=== PATIENT | female | born 1935 | race African-American/Black ===

== ENCOUNTER 2019-01-12 20:11 | Inpatient (IN) | payer MEDICARE ==
[~2019-01-12] VITALS: Ht 170.2 cm; Wt 80.7 kg
--- NOTE | 2019-01-12 20:42 | Emergency Room Report ---
History of Present Illness General Chief Complaint: Abdominal Pain Source: Patient Present Illness HPI 83-year-old female history of stage IV liver cancer, presents with 2 days of flank pain, turning jaundiced, no aggravating relieving factors, she has achy pains severity is severe and constant, no fever no chills, she does endorse palpitations, patient normally follows up at [facility], patient presents for evaluation. Allergies: Coded Allergies: SULFAMETHOXAZOLE (Verified Allergy, Unknown, 01/12/19) TRIMETHOPRIM (Verified Allergy, Unknown, 01/12/19) Patient History Past Medical History: see triage record Reviewed Nursing Documentation: PMH: Agreed; PSxH: Agreed Nursing Documentation-PMH Past Medical History: No History, Except For Review of Systems All Other Systems: negative except mentioned in HPI Physical Exam Vital Signs Date Time Temp Pulse Resp B/P (MAP) Pulse Ox O2 Delivery O2 Flow Rate FiO2 01/12/19 20:26 96.4 137 24 106/80 (89) 99 Room Air Sp02 EP Interpretation: reviewed, normal General Appearance: well appearing, no apparent distress, alert Head: normocephalic, atraumatic Eyes: bilateral eye PERRL, bilateral eye EOMI, bilateral eye scleral icterus ENT: uvula midline, moist mucus membranes Neck: supple, thyroid normal, supple/symm/no masses Respiratory: lungs clear, no respiratory distress, no retraction, no accessory muscle use Cardiovascular #1: normal peripheral pulses, no edema, no gallop, no murmur, tachycardia Gastrointestinal: non tender, soft, no guarding, no rebound Musculoskeletal: normal inspection Neurologic: alert, oriented x3 Psychiatric: mood/affect normal Skin: warm/dry, jaundice Medical Decision Making Diagnostic Impression: Primary Impression: Tachycardia Additional Impressions: Sepsis Qualified Codes: A41.9 - Sepsis, unspecified organism Jaundice RICHARD (acute kidney injury) Dehydration ER Course 83-year-old female presents with new onset jaundice, tachycardia, shortness of breath concerning for ACS versus sepsis versus biliary obstruction CT scan shows no acute processes IV antibiotic started, fluid resuscitation, patient will be admitted to stepdown, Reevaluation 11:47 PM, a pulse was filled out, patient is DNR with selective comfort measures, patient will accept a central line and life-saving medication no compressions no intubation Patient will be admitted to Dr. Hendricks Laboratory Tests Test 01/12/19 20:35 01/12/19 23:08 White Blood Count 11.6 K/UL (4.8-10.8) H Red Blood Count 3.41 M/UL (4.20-5.40) L Hemoglobin 11.3 G/DL (12.0-16.0) L Hematocrit 33.9 % (37.0-47.0) L Mean Corpuscular Volume 100 FL (80-99) H Mean Corpuscular Hemoglobin 33.1 PG (27.0-31.0) H Mean Corpuscular Hemoglobin Concent 33.3 G/DL (32.0-36.0) Red Cell Distribution Width 14.8 % (11.6-14.8) Platelet Count 256 K/UL (150-450) Mean Platelet Volume 7.2 FL (6.5-10.1) Neutrophils (%) (Auto) 78.2 % (45.0-75.0) H Lymphocytes (%) (Auto) 9.9 % (20.0-45.0) L Monocytes (%) (Auto) 10.3 % (1.0-10.0) H Eosinophils (%) (Auto) 0.3 % (0.0-3.0) Basophils (%) (Auto) 1.2 % (0.0-2.0) Sodium Level 137 MMOL/L (136-145) Potassium Level 3.9 MMOL/L (3.5-5.1) Chloride Level 98 MMOL/L (98-107) Carbon Dioxide Level 23 MMOL/L (21-32) Anion Gap 16 mmol/L (5-15) H Blood Urea Nitrogen 47 mg/dL (7-18) H Creatinine 2.6 MG/DL (0.55-1.30) H Estimate Glomerular Filtration Rate mL/min (>60) Glucose Level 91 MG/DL (74-106) Lactic Acid Level 3.90 mmol/L (0.4-2.0) H Pending Calcium Level 9.9 MG/DL (8.5-10.1) Total Bilirubin 30.1 MG/DL (0.2-1.0) H Direct Bilirubin 23.7 MG/DL (0.0-0.3) H Aspartate Amino Transferase (AST) 614 U/L (15-37) H Alanine Aminotransferase (ALT) 68 U/L (12-78) Alkaline Phosphatase 470 U/L (46-116) H Total Creatine Kinase 1310 U/L (26-308) H Creatine Kinase MB 1.5 NG/ML (0.0-3.6) Creatine Kinase MB Relative Index 0.1 Troponin I 0.346 ng/mL (0.000-0.056) Pro-B-Type Natriuretic Peptide 33320 pg/mL (0-125) H Total Protein 5.9 G/DL (6.4-8.2) L Albumin 2.4 G/DL (3.4-5.0) L Globulin 3.5 g/dL Albumin/Globulin Ratio 0.7 (1.0-2.7) L Lipase 162 U/L (73-393) EKG Diagnostic Results EKG Time: 20:38 EP Interpretation: A. fib, RVR, rate 139, QTc 478, no acute ST elevations, left axis deviation Rhythm Strip Diag. Results Rhythm Strip Time: 21:12 EP Interpretation: yes Rate: 142 Rhythm: other - Atrial fibrillation Chest X-Ray Diagnostic Results Chest X-Ray Diagnostic Results : Chest X-Ray Ordered: Yes # of Views/Limited/Complete: 1 View Indication: Shortness of Breath EP Interpretation: Yes Interpretation: other - Enlarged heart Impression: Other - Enlarged heart Electronically Signed by: Lucius Santana MD CT/MRI/US Diagnostic Results CT/MRI/US Diagnostic Results : Impression Preliminary Findings Only See Final Report For Complete Findings CT CHEST Without Contrast: Multiple (greater than 10) pulmonary nodules within the lungs largest within the right upper lobe measuring 1.9 cm. No consolidation, interstitial edema, or pleural effusion. No adenopathy. Mild cardiomegaly. CT ABDOMEN & PELVIS Without Contrast: Innumerable lesions throughout the liver which is enlarged. Findings suggestive of extensive metastatic disease. No obstruction or other grossly evident acute process within the GI tract. Postsurgical changes in the transverse colon. Status post cholecystectomy and hysterectomy. Trace ascites within the abdomen and pelvis. Mild anasarca. Radiologist: Andrea Mora MD Study ready at 22:48 and initial results transmitted at 23:31 Last Vital Signs Date Time Temp Pulse Resp B/P (MAP) Pulse Ox O2 Delivery O2 Flow Rate FiO2 01/12/19 20:26 96.4 137 24 106/80 (89) 99 Room Air Disposition: ADMITTED INPATIENT Condition: Serious Scripts Unable to Obtain Active Prescriptions or Reported Meds Lucius Santana MD Jan 12, 2019 20:42
[2019-01-12] MEDS ORDERED: Omnipaque-300 100ml vial INJ PRN (20:45)
--- NOTE | 2019-01-12 20:45 | NUR ---
ED Nurse Note: Patient was BIB daughter due to severe jaundice, intravtable lower back pain. States that has stage 4 liver cancer with methastasis in the lungs. Patient presented anxious, tachycardic HR 155, AAO x4, other VSS at this time. Daughter by bed side.
--- NOTE | 2019-01-12 20:50 | NUR ---
ED Nurse Note: Patient is on hospise, paliative care.
[2019-01-12 20:54] VITALS: BP 106/80
[2019-01-12 21:00] VITALS: BP 132/65
[2019-01-12] MEDS ORDERED: Morphine Sulfate 4mg/ml Inj (IV USE ONLY) IVP ONE (21:00)
[2019-01-12] MEDS ORDERED: Ketorolac 30mg Inj IV ONE (21:15)
--- NOTE | 2019-01-12 21:30 | NUR ---
ED Nurse Note: Patient signed DNR and DNI form.
[2019-01-12] MEDS ORDERED: Vancomycin 1 GM in NS 275 ML IVPB ONE (21:45)
[2019-01-12] MEDS ORDERED: DiphenhydrAMINE 50mg/ml Inj IVP ONE (21:45)
[2019-01-12] MEDS ORDERED: Cefepime HCl 2 GM in D5W 55 ML IVPB ONE (21:45)
[2019-01-12 21:49] LABS: BASOPHILS % (AUTO) 1.2 % (0.0-2.0); EOSINOPHILS % (AUTO) 0.3 % (0.0-3.0); HEMATOCRIT 33.9 % (37.0-47.0); HEMOGLOBIN 11.3 G/DL (12.0-16.0); LYMPHOCYTES % (AUTO) 9.9 % (20.0-45.0); MEAN CORPUSCULAR VOLUME 100 FL (80-99); MONOCYTES % (AUTO) 10.3 % (1.0-10.0); NEUTROPHILS % (AUTO) 78.2 % (45.0-75.0); PLATELET COUNT 256 K/UL (150-450); RED BLOOD COUNT 3.41 M/UL (4.20-5.40); RED CELL DISTRIBUTION WIDTH 14.8 % (11.6-14.8); WHITE BLOOD COUNT 11.6 K/UL (4.8-10.8)
[2019-01-12 21:59] LABS: ANION GAP 16 mmol/L (5-15); BLOOD UREA NITROGEN 47 mg/dL (7-18); CALCIUM 9.9 MG/DL (8.5-10.1); CARBON DIOXIDE 23 MMOL/L (21-32); CHLORIDE 98 MMOL/L (98-107); CREATININE 2.6 MG/DL (0.55-1.30); POTASSIUM 3.9 MMOL/L (3.5-5.1); SODIUM 137 MMOL/L (136-145)
[2019-01-12] MEDS ORDERED: Albuterol ud Inhalation HHN ONE (22:15)
[2019-01-12] MEDS ORDERED: Omnipaue 350mg/ml 100ml vial INJ PRN ×2 (22:15)
[2019-01-12] MEDS ORDERED: Ipratropium 0.02% Inh Soln 2.5ml UD HHN ONE (22:15)
[2019-01-12 22:16] LABS: ALANINE AMINOTRANSFERASE 68 U/L (12-78); ALBUMIN 2.4 G/DL (3.4-5.0); ALBUMIN/GLOBULIN RATIO 0.7 (1.0-2.7); ALKALINE PHOSPHATASE 470 U/L (46-116); ASPARTATE AMINO TRANSFERASE 614 U/L (15-37); BILIRUBIN,TOTAL 30.1 MG/DL (0.2-1.0); CKMB 1.5 NG/ML (0.0-3.6); CREATINE KINASE 1310 U/L (26-308)
[2019-01-12 22:19] LABS: BILIRUBIN,DIRECT 23.7 MG/DL (0.0-0.3)
[2019-01-12] MEDS ORDERED: LORazepam Inj 2mg/ml 1ml IV PRN (22:45)
[2019-01-12] MEDS: D5 1/2NS 1,000 ML IV SCH (22:45)
--- NOTE | 2019-01-12 23:32 | Diagnostic Imaging Report ---
Indication: Chest and abdominal pain. Jaundice. History of liver cancer. Abdominal pain especially in the left lower quadrant. Hospice care Technique: Continuous helical transaxial imaging of the chest, abdomen and pelvis was obtained from the thoracic inlet to the pubic symphysis. No IV contrast was administered. Coronal 2-D reformats were also obtained. Study obtained in a Siemens sensation [address] Total Dose length Product (DLP): 1355.[address] Dose Index Volume (CTDIvol): 18.7 mGy Comparison: None Findings: CT CHEST: There are multiple lung nodules consistent with metastatic neoplasm bilaterally. The largest single nodule is in the right upper lobe pleural-based measuring 1.9 cm. Other nodules are considerably smaller. There is a right chest port present. The tip of the port is in the junction of the SVC right atrium. The heart is enlarged. There is no large adenopathy appreciated within the mediastinum or christin but to this and, the evaluation is limited as no IV contrast was given. CT abdomen pelvis: The liver is diffusely enlarged heterogeneous in appearance likely on the basis of metastatic neoplasm with multiple areas of abnormal low density. Again evaluation is limited as no contrast material was administered. Staple line is noted in the low anterior abdomen associated with small bowel loops consistent with prior bowel resection. Aortoiliac calcifications are present. There is no hydronephrosis. There is a low-density lesion in the right kidney which is probably a cyst measuring about 3 cm. Generalized anasarca noted. There is suggestion of a presacral edema. There is no compelling evidence for bowel obstruction. There are multiple surgical clips in the epigastric region of the abdomen/andrew hepatis. No large nodes are identified although evaluation is quite limited. Bones are osteopenic. There is narrowing of intervertebral discs and accompanying endplate osteophyte formation. Hypertrophied facet joints also demonstrated.. IMPRESSION: Limited evaluation due to artifacts, some related to motion. Evidence of metastatic malignant neoplasm with multiple lung nodules and suspicion of metastatic disease involving the liver. Consequently diffuse enlargement of the liver noted. Right chest port. Anasarca Evidence of previous abdominal surgery including partial bowel resection. Degenerative changes of the spine. Hypodensity in the right kidney indeterminant, but possibly cystic. The CT scanner at [facility] is accredited by the [employer] and the scans are performed using dose optimization techniques as appropriate to a performed exam including Automatic Exposure control.
[2019-01-12 23:50] VITALS: BP 132/65
--- NOTE | 2019-01-12 23:50 | NUR ---
ED Nurse Note: Patient was admited to SDU, due to severe jaundice, generalized weakness. Patient was transfered to the unit via gurney by ACLS protocol, with all belongings. Patient AAO x4, VSS at ths time.
--- NOTE | 2019-01-13 | NUR ---
NURSE NOTES: Received patient from ED Nurse Adrienne RN. Patient is awake and oriented x4. Receiving oxygen via room air, patient tolerating well, O2 Sat 99%. IV site is Left AC 20g receiving D5 1/2NS @50cc/hr. Heart monitor is on, bed is locked, placed in lowest position, side rails up x3, call light within reach, bed alarm on. Will continue to monitor.
[2019-01-13] MEDS: Morphine Sulfate 2mg/ml Inj(IV/IM USE ONLY) IVP PRN ×2 (00:32→09:00)
--- NOTE | 2019-01-13 01:20 | NUR ---
NURSE NOTES: During admission assessment, patient has jaundice present in both eyes. Bilateral pitting edema in both legs. When asked about home medication, patient stated she takes blood pressure medication and heart medication, but unable to remember name or dose of medications.
--- NOTE | 2019-01-13 02:50 | NUR ---
NURSE NOTES: Patient's Heart Rate is 140bpm, patient is asymptomatic and resting in bed. Left message to Dr. Hendricks's office regarding heart rate.
[2019-01-13 04:25] LABS: BASOPHILS % (AUTO) 0.5 % (0.0-2.0); EOSINOPHILS % (AUTO) 0.1 % (0.0-3.0); HEMATOCRIT 33.3 % (37.0-47.0); HEMOGLOBIN 10.8 G/DL (12.0-16.0); MEAN CORPUSCULAR VOLUME 101 FL (80-99); MONOCYTES % (AUTO) 10.1 % (1.0-10.0); NEUTROPHILS % (AUTO) 84.3 % (45.0-75.0); PLATELET COUNT 263 K/UL (150-450); RED BLOOD COUNT 3.31 M/UL (4.20-5.40); RED CELL DISTRIBUTION WIDTH 16.4 % (11.6-14.8); WHITE BLOOD COUNT 15.2 K/UL (4.8-10.8)
--- NOTE | 2019-01-13 05:11 | NUR ---
NURSE NOTES: Patient is sleeping, showing no signs of distress. Will continue to monitor.
[2019-01-13 05:15] LABS: ALANINE AMINOTRANSFERASE 67 U/L (12-78); ALBUMIN 2.3 G/DL (3.4-5.0); ALBUMIN/GLOBULIN RATIO 0.7 (1.0-2.7); ALKALINE PHOSPHATASE 450 U/L (46-116); ANION GAP 14 mmol/L (5-15); ASPARTATE AMINO TRANSFERASE 585 U/L (15-37); BILIRUBIN,TOTAL 29.6 MG/DL (0.2-1.0); BLOOD UREA NITROGEN 47 mg/dL (7-18); CALCIUM 9.5 MG/DL (8.5-10.1); CARBON DIOXIDE 23 MMOL/L (21-32); CHLORIDE 100 MMOL/L (98-107); CREATININE 2.8 MG/DL (0.55-1.30); POTASSIUM 4.1 MMOL/L (3.5-5.1); SODIUM 137 MMOL/L (136-145)
[2019-01-13 05:41] LABS: BILIRUBIN,DIRECT 23.9 MG/DL (0.0-0.3)
--- NOTE | 2019-01-13 07:22 | NUR ---
HAND-OFF: Report given to Celia SERRATO. Patient in stable condition.
[2019-01-13 08:00] VITALS: BP 114/57
--- NOTE | 2019-01-13 08:00 | NUR ---
NURSE NOTES: Received change of shift report from Epifanio RN. Pt is awake, alert, oriented x3. Pt is on room air with 97% O2sat and diminished lung sounds on auscultation. Per Tele monitor, heart rhythm/rate fluctuated from AFib to ST with heart rate in the 110's to 120's and bounding peripheral pulses on palpation, and trace edema on bilateral lower extremities/feet. Abdomen is large, round, soft, nontender to touch with hypoactive bowel sounds. Pt voids using bedpan and bedside commode with assistance. Diet is currently NPO. Peripheral IV access is present on left AC #20G, infusing D5 0.45NS at 50ml/hour. Skin is intact. Head of bed is at semi-marcelino's, bed locked, in lowest position, with three side rails up and call light within reach. Will continue to monitor pt and follow plan of care per MD orders and protocol.
[2019-01-13] MEDS: Heparin 5000 units/ml inj SUBQ SCH ×2 (09:02→21:31)
--- NOTE | 2019-01-13 10:30 | NUR ---
NURSE NOTES: Pt was seen by Dr Hendricks. MD notified regarding pt's fluctuating heart rhythm and rate from ST to AFib HR 110's to 140's. Dr Hendricks will place order for PRN Diltiazem.
--- NOTE | 2019-01-13 11:22 | Diagnostic Imaging Report ---
Indication: Dyspnea Comparison: None A single view chest radiograph was obtained. Findings: There is a nodular opacity in the right upper lobe. CT chest demonstrated multiple nodules within the lungs consistent with metastatic neoplasm. No definite infiltrate or pulmonary vascular congestion identified. There is a right chest port noted. The heart is enlarged. The aorta is mildly enlarged consistent with atherosclerotic vascular disease. The bones are osteopenic. Impression: Lung nodules consistent with metastatic neoplasm. Right chest port Cardiomegaly
[2019-01-13 12:00] VITALS: BP 96/67
--- NOTE | 2019-01-13 12:00 | NUR ---
NURSE NOTES: Pt had BM x1, formed, soft/brown, using bedside commode. Pt has been cleaned and assisted back to bed. Spoke with pt's daughter over the phone who stated that pt is on hospice and daughter will arrive this afternoon to visit her mother. Pt is resting in bed with stable VS.
--- NOTE | 2019-01-13 12:06 | History and Physical ---
History of Present Illness General Date patient seen: Jan 13, 2019 Reason for Hospitalization: Abdominal Pain Present Illness HPI 83 year old female with hx of metastatic liver cancer, was brought in by daughter because patient was getting more yellow. She is also c/o new right flank pain. She is awake, laying down in bed and is comfortable now. Allergies: Coded Allergies: SULFAMETHOXAZOLE (Verified Allergy, Unknown, 01/12/19) TRIMETHOPRIM (Verified Allergy, Unknown, 01/12/19) Medication History Unable to Obtain Active Prescriptions or Reported Meds Patient History Healthcare decision maker Resuscitation status Do Not Resuscitate Advanced Directive on File Past Medical/Surgical History Past Medical/Surgical History: (1) metastatic liver cancer Review of Systems Constitutional: Reports: malaise Eye: Reports: no symptoms All Other Systems: negative except mentioned in HPI Physical Exam General Appearance: cachetic, thin Lines, tubes and drains: peripheral HEENT: normocephalic, atraumatic Neck: non-tender, normal alignment, normal inspection, abnormal alignment Respiratory/Chest: chest wall non-tender, lungs clear Breasts: no masses Cardiovascular/Chest: normal peripheral pulses Genitourinary/Rectal: normal genital exam Extremities: normal range of motion Last 24 Hour Vital Signs Date Time Temp Pulse Resp B/P (MAP) Pulse Ox O2 Delivery O2 Flow Rate FiO2 01/13/19 09:30 98.2 01/13/19 08:04 143 01/13/19 08:00 96.8 124 22 114/57 (76) 97 01/13/19 08:00 Room Air 97.0 01/13/19 04:00 Room Air 01/13/19 00:35 Room Air 01/13/19 00:34 Room Air 01/13/19 00:15 127 01/12/19 23:50 98.2 135 26 132/65 96 Room Air 21 01/12/19 23:02 128 19 100 Room Air 21 134 26 96 01/12/19 23:02 134 26 96 Room Air 21 01/12/19 22:03 98.2 01/12/19 21:00 98.2 135 24 132/65 100 Room Air 01/12/19 20:54 137 24 Room Air 01/12/19 20:26 96.4 137 24 106/80 (89) 99 Room Air Laboratory Tests Test 01/12/19 20:35 01/12/19 23:08 01/13/19 03:15 01/13/19 09:15 White Blood Count 11.6 K/UL (4.8-10.8) H 15.2 K/UL (4.8-10.8) H Red Blood Count 3.41 M/UL (4.20-5.40) L 3.31 M/UL (4.20-5.40) L Hemoglobin 11.3 G/DL (12.0-16.0) L 10.8 G/DL (12.0-16.0) L Hematocrit 33.9 % (37.0-47.0) L 33.3 % (37.0-47.0) L Mean Corpuscular Volume 100 FL (80-99) H 101 FL (80-99) H Mean Corpuscular Hemoglobin 33.1 PG (27.0-31.0) H 32.6 PG (27.0-31.0) H Mean Corpuscular Hemoglobin Concent 33.3 G/DL (32.0-36.0) 32.4 G/DL (32.0-36.0) Red Cell Distribution Width 14.8 % (11.6-14.8) 16.4 % (11.6-14.8) H Platelet Count 256 K/UL (150-450) 263 K/UL (150-450) Mean Platelet Volume 7.2 FL (6.5-10.1) 7.0 FL (6.5-10.1) Neutrophils (%) (Auto) 78.2 % (45.0-75.0) H 84.3 % (45.0-75.0) H Lymphocytes (%) (Auto) 9.9 % (20.0-45.0) L 5.0 % (20.0-45.0) L Monocytes (%) (Auto) 10.3 % (1.0-10.0) H 10.1 % (1.0-10.0) H Eosinophils (%) (Auto) 0.3 % (0.0-3.0) 0.1 % (0.0-3.0) Basophils (%) (Auto) 1.2 % (0.0-2.0) 0.5 % (0.0-2.0) Sodium Level 137 MMOL/L (136-145) 137 MMOL/L (136-145) Potassium Level 3.9 MMOL/L (3.5-5.1) 4.1 MMOL/L (3.5-5.1) Chloride Level 98 MMOL/L (98-107) 100 MMOL/L (98-107) Carbon Dioxide Level 23 MMOL/L (21-32) 23 MMOL/L (21-32) Anion Gap 16 mmol/L (5-15) H 14 mmol/L (5-15) Blood Urea Nitrogen 47 mg/dL (7-18) H 47 mg/dL (7-18) H Creatinine 2.6 MG/DL (0.55-1.30) H 2.8 MG/DL (0.55-1.30) H Estimat Glomerular Filtration Rate mL/min (>60) mL/min (>60) Glucose Level 91 MG/DL (74-106) 108 MG/DL (74-106) H Lactic Acid Level 3.90 mmol/L (0.4-2.0) H 4.50 mmol/L (0.66-2.22) H 5.20 mmol/L (0.4-2.0) H Calcium Level 9.9 MG/DL (8.5-10.1) 9.5 MG/DL (8.5-10.1) Total Bilirubin 30.1 MG/DL (0.2-1.0) H 29.6 MG/DL (0.2-1.0) H Direct Bilirubin 23.7 MG/DL (0.0-0.3) H 23.9 MG/DL (0.0-0.3) H Aspartate Amino Transf (AST/SGOT) 614 U/L (15-37) H 585 U/L (15-37) H Alanine Aminotransferase (ALT/SGPT) 68 U/L (12-78) 67 U/L (12-78) Alkaline Phosphatase 470 U/L (46-116) H 450 U/L (46-116) H Total Creatine Kinase 1310 U/L (26-308) H Creatine Kinase MB 1.5 NG/ML (0.0-3.6) Creatine Kinase MB Relative Index 0.1 Troponin I 0.346 ng/mL (0.000-0.056) Pro-B-Type Natriuretic Peptide 94851 pg/mL (0-125) H Total Protein 5.9 G/DL (6.4-8.2) L 5.7 G/DL (6.4-8.2) L Albumin 2.4 G/DL (3.4-5.0) L 2.3 G/DL (3.4-5.0) L Globulin 3.5 g/dL 3.4 g/dL Albumin/Globulin Ratio 0.7 (1.0-2.7) L 0.7 (1.0-2.7) L Lipase 162 U/L (73-393) Test 01/13/19 11:23 Lactic Acid Level 4.30 mmol/L (0.66-2.22) H Height (Feet): 5 Height (Inches): 7.00 Weight (Pounds): 178 Medications Current Medications Medications (Trade) Dose Ordered Sig/Chau Route PRN Reason Start Time Stop Time Status Last Admin Dose Admin Dextrose (Dextrose 50%) 25 ml Q30M PRN IV Hypoglycemia 01/12/19 22:45 02/11/19 22:44 Dextrose (Dextrose 50%) 50 ml Q30M PRN IV Hypoglycemia 01/12/19 22:45 02/11/19 22:44 Dextrose/Sodium Chloride 1,000 ml @ 50 mls/hr Q20H IV 01/12/19 22:33 02/11/19 22:32 01/12/19 22:45 Heparin Sodium (Porcine) (Heparin 5000 units/ml) 5,000 units EVERY 12 HOURS SUBQ 01/13/19 09:00 02/12/19 08:59 01/13/19 09:02 Iohexol (OMNIPAQUE-300 100ml) 100 ml NOW PRN INJ Radiology Procedure 01/12/19 20:45 01/14/19 20:40 Iohexol (Omnipaque) 100 mg NOW PRN INJ Radiology Procedure 01/12/19 22:15 01/14/19 22:10 Iohexol (Omnipaque) 100 mg NOW PRN INJ Radiology Procedure 01/12/19 22:15 01/14/19 22:10 Lorazepam (Ativan 2mg/ml 1ml) 0.5 mg Q4H PRN IV For Anxiety 01/12/19 22:45 01/19/19 22:44 Morphine Sulfate (Morphine Sulfate) 1 mg Q4H PRN IVP For Pain 01/12/19 22:45 01/19/19 22:44 01/13/19 09:00 Ondansetron HCl (Zofran) 4 mg Q6H PRN IVP Nausea & Vomiting 01/12/19 22:45 02/11/19 22:44 Assessment/Plan Problem List: (1) Jaundice ICD Codes: R17 - Unspecified jaundice SNOMED: 57633497 (2) Tachycardia ICD Codes: R00.0 - Tachycardia, unspecified SNOMED: 0125854 (3) RICHARD (acute kidney injury) ICD Codes: N17.9 - Acute kidney failure, unspecified SNOMED: 72829694, 7384288 (4) Paroxysmal atrial fibrillation ICD Codes: I48.0 - Paroxysmal atrial fibrillation SNOMED: 275682843 (5) metastatic liver cancer Assessment/Plan: d5 1/2 NS for now NPO Cardizem prn I tried to call the daughter to get more information about the patient and their expectations. For now, we continue symptomatic treatment until a family meeting in arranged. Brianna Hendricks MD Jan 13, 2019 12:06
[2019-01-13] MEDS ORDERED: Morphine Sulfate 10mg/5ml Oral Soln ud ORAL PRN (12:15)
--- NOTE | 2019-01-13 15:44 | NUR ---
NURSE NOTES: surveillance technician is at bedside and is performing abdominal ultrasound.
--- NOTE | 2019-01-13 15:47 | NUR ---
CASE MANAGEMENT:REVIEW 83 YR OLD FEMALE FROM HOME CC: ABDOMINAL PAIN PMH: LIVER CANCER SI: SEPSIS. AFIB W/RVR. DEHYDRATION 96.5 137 24 106/80 99% ON RA WBC+11.6 BUN+47 CR+2.6 TCK+1310 TROPONIN(+) 0.0346 IS: 1L NS BOLUS IV MORPHINE IV ZOFRAN IV TORADOL IV VANCOMYCIN IV CEFEPIME : TO STEP DOWN UNIT
[2019-01-13 16:00] VITALS: BP 133/59
--- NOTE | 2019-01-13 18:00 | NUR ---
NURSE NOTES: Pt has been cleaned, gown/bed linens were changed, and pt assisted with repositioning.
[2019-01-13] MEDS: D5 1/2NS 1,000 ML IV SCH (18:06)
--- NOTE | 2019-01-13 18:58 | NUR ---
NURSE NOTES: Pt reports severe back pain and was administered Morphine per PRN order.
--- NOTE | 2019-01-13 19:30 | NUR ---
NURSE NOTES: Received pt in no acute distress, AAOx4; currently denies chest pains but c/o low back pain and weakness. Follow commands. Pt denies SOB at rest bu only with minimal exertion. Otherwise, she is saturating 100% on RA. Breath sounds diminished on both bases. Pt has generalized yellowish discoloration, abdomen distended and has generalized edema. PIV site on LAC patent. Noted a portacath on right chest but not accessed. Skin cool to touch, temp 92.7. orally. Pt continent of urine and stool. HR 127, on afib, BP stable. Family at the bedside and plan of care explained. Family provided information re: Hospice care and brought 2 more meds that pt used to take at hospice. Jaymie julian applied. Will continue to monitor pt
--- NOTE | 2019-01-13 19:30 | NUR ---
HAND-OFF: Report given to Zack SERRATO. Endorsed plan of care.
[2019-01-13 20:00] VITALS: BP 122/54
[2019-01-13] MEDS: dilTIAZem HCl 25mg/5ml Inj IV PRN (22:50)
[2019-01-14] VITALS: BP 102/74
--- NOTE | 2019-01-14 | NUR ---
HAND-OFF: NURSE NOTES: Assisted to BSC and attempted to move bowels. No BM. Denies pain presently. Temp 96.6 orally feels quite "warm" per pt. Jaymie julian turned off. IV site intact. Still on Afib at 118-127bpm with RVR, BP stable.
[2019-01-14] MEDS: Morphine Sulfate 2mg/ml Inj(IV/IM USE ONLY) IVP PRN ×3 (01:05→12:11)
[2019-01-14] MEDS: dilTIAZem HCl 25mg/5ml Inj IV PRN (03:23)
--- NOTE | 2019-01-14 03:23 | NUR ---
NURSE NOTES: HR 133 on afib. BP 112/65. Cardizem 10mg IVP given over 2 mins.
[2019-01-14 04:00] VITALS: BP 118/52
--- NOTE | 2019-01-14 05:36 | NUR ---
NURSE NOTES: HR 122, on Afib. Bathed and oral care done. Feels "weak and poorly" as claimed. Still c/o back pain but refuses pain meds at this time.Repositioned for comfort. Temp 95.6 axillary but pt refuses the warming blanket. Extra covers provided instead. BP stable. Still jaundiced, ascitic and anasarcous.comfort care provided
--- NOTE | 2019-01-14 07:26 | NUR ---
HAND-OFF: Report given to Jarred Colunga RN.
--- NOTE | 2019-01-14 07:26 | NUR ---
NURSE NOTES: Received report from AMA Dixon Will continue plan of care.
[2019-01-14 08:00] VITALS: BP 115/71
[2019-01-14] MEDS: Heparin 5000 units/ml inj SUBQ SCH (08:56)
--- NOTE | 2019-01-14 10:35 | Pulmonology Progress Note ---
Assessment/Plan Problems: (1) Jaundice (2) Tachycardia (3) RICHARD (acute kidney injury) (4) Paroxysmal atrial fibrillation (5) metastatic liver cancer Assessment/Plan talked to pts daughter, Tia. Pt has been on hospice care for sometime. She will go back home on hospice. Subjective ROS Limited/Unobtainable: No Constitutional: Reports: no symptoms HEENT: Repors: no symptoms Respiratory: Reports: no symptoms Allergies: Coded Allergies: SULFAMETHOXAZOLE (Verified Allergy, Unknown, 01/12/19) TRIMETHOPRIM (Verified Allergy, Unknown, 01/12/19) Objective Last 24 Hour Vital Signs Date Time Temp Pulse Resp B/P (MAP) Pulse Ox O2 Delivery O2 Flow Rate FiO2 01/14/19 08:16 95.6 01/14/19 08:00 Room Air 97.0 01/14/19 08:00 98.1 104 20 115/71 (86) 96 01/14/19 04:00 95.6 127 20 118/52 (74) 97 01/14/19 04:00 Room Air 97.0 01/14/19 03:44 114 01/14/19 03:23 133 106/63 01/14/19 00:00 127 01/14/19 00:00 Room Air 97.0 01/14/19 00:00 96.6 118 20 102/74 (83) 97 01/13/19 22:50 132 107/61 01/13/19 20:00 92.7 127 20 122/54 (76) 100 01/13/19 20:00 Room Air 97.0 01/13/19 19:44 137 01/13/19 19:28 96.4 01/13/19 16:00 96.4 120 18 133/59 (83) 94 01/13/19 16:00 Room Air 97.0 01/13/19 16:00 124 01/13/19 12:00 Room Air 97.0 01/13/19 12:00 97.6 118 22 96/67 (77) 97 01/13/19 11:41 128 Intake and Output 01/13/19 01/14/19 19:00 07:00 Intake Total 600 ml 550 ml Output Total 0 ml Balance 600 ml 550 ml Intake Oral 0 ml IV Total 600 ml 550 ml Output Stool Total 0 ml # Voids 4 2 # Bowel Movements 1 General Appearance: cachetic Respiratory/Chest: chest wall non-tender, crackles/rales Cardiovascular: normal peripheral pulses, normal rate Abdomen: normal bowel sounds, no organomegaly Genitourinary: normal external genitalia Extremities: no clubbing Neurologic/Psychiatric: ham pumper II-XII grossly normal, abnormal gait Microbiology Date/Time Source Procedure Growth Status 01/12/19 20:35 Blood Blood Culture - Preliminary Gram Positive Cocci Resulted 01/12/19 20:20 Blood Blood Culture - Preliminary Resulted Laboratory Tests 01/13/19 11:23: Lactic Acid Level 4.30H Current Medications Medications (Trade) Dose Ordered Sig/Chau Route PRN Reason Start Time Stop Time Status Last Admin Dose Admin Dextrose (Dextrose 50%) 25 ml Q30M PRN IV Hypoglycemia 01/12/19 22:45 02/11/19 22:44 Dextrose (Dextrose 50%) 50 ml Q30M PRN IV Hypoglycemia 01/12/19 22:45 02/11/19 22:44 Diltiazem HCl (Cardizem) 10 mg EVERY HOUR PRN IV heart rate more than 120 BPM 01/13/19 12:00 02/12/19 11:59 01/14/19 03:23 Heparin Sodium (Porcine) (Heparin 5000 units/ml) 5,000 units EVERY 12 HOURS SUBQ 01/13/19 09:00 02/12/19 08:59 01/14/19 08:56 Iohexol (OMNIPAQUE-300 100ml) 100 ml NOW PRN INJ Radiology Procedure 01/12/19 20:45 01/14/19 20:40 Iohexol (Omnipaque) 100 mg NOW PRN INJ Radiology Procedure 01/12/19 22:15 01/14/19 22:10 Iohexol (Omnipaque) 100 mg NOW PRN INJ Radiology Procedure 01/12/19 22:15 01/14/19 22:10 Lorazepam (Ativan 2mg/ml 1ml) 0.5 mg Q4H PRN IV For Anxiety 01/12/19 22:45 01/19/19 22:44 Morphine Sulfate (Morphine Sulfate) 1 mg Q4H PRN IVP SEVERE BREAKTHROUGH PAIN 01/13/19 12:15 01/19/19 22:44 01/14/19 07:46 Morphine Sulfate (Morphine 10mg/ 5ml Oral Soln) 10 mg Q4H PRN ORAL PAIN 4-10 01/13/19 12:15 01/20/19 12:14 01/13/19 18:58 Ondansetron HCl (Zofran) 4 mg Q6H PRN IVP Nausea & Vomiting 01/12/19 22:45 02/11/19 22:44 01/14/19 08:54 Brianna Hendricks MD Jan 14, 2019 10:35
--- NOTE | 2019-01-14 10:51 | NUR ---
RD ASSESSMENT & RECOMMENDATIONS SEE CARE ACTIVITY FOR COMPLETE ASSESSMENT DAILY ESTIMATED NEEDS: Needs based on cancer, RICHARD; 66kg ABW 25-35 kcals/kg 1,650- 2,310 total kcals 1-2 g protein/kg 66-132 g total protein fluid per MD mL/kg total fluid mLs NUTRITION DIAGNOSIS: Increased kcal and protein needs r/t cancer AEB pt has stage 4 mets cancer. CURRENT DIET:CLD PO DIET RECOMMENDATIONS: Low Na diet, as medically able. ADDITIONAL RECOMMENDATIONS: Obtain standing wt if able. Advance diet as medically able. Monitor lytes w/ RICHARD, need for dietary restriction. Monitor PO intake and tolerance, need for supplementation. Ensure Clear for CLD. (240kcal, 8g pro each) NH4 lab if appropriate.
--- NOTE | 2019-01-14 11:15 | Diagnostic Imaging Report ---
Indication: Abdominal pain Technique: Grayscale and duplex Doppler imaging of the abdomen performed. Comparison: None Findings: The liver is enlarged measuring 23 cm with heterogeneity and suggestion of multiple nodules suspicious for metastatic neoplasm. There is a small amount of ascites present. There is no biliary ductal dilatation identified. CBD is 3.4 mm. The spleen is enlarged as well measuring 26 cm. Both kidneys demonstrate abnormal increased cortical echogenicity. Demonstrated part of the pancreas and aorta and IVC are unremarkable. There is flow demonstrated within the main portal vein which is patent. There is no hydronephrosis. There are multiple cysts within the kidneys. IMPRESSION: Hepatomegaly with the suggestion of multiple nodules suspicious for metastatic neoplasm. Splenomegaly. Mild ascites Suspected medical renal disease. Multiple bilateral renal cysts. Status post cholecystectomy.
[2019-01-14 12:00] VITALS: BP 121/64
--- NOTE | 2019-01-14 12:10 | NUR ---
NURSE NOTES: Per Dr. Hendricks ordered to continue [facility] at home. Entered other nursing orders. Noted.
--- NOTE | 2019-01-14 12:49 | NUR ---
NURSE NOTES: Faxed copy of patient's H&P and order to continue [facility] to [facility] as requested. , . Called and spoke with Lisandra to verify receipt of documents. Documents received. Also informed Lisandra that patient stays home with daughterGisell. Noted. Addendum: 01/14/19 at 1319 by ABBY VALENZUELA RN NURSE NOTES: Per Lisandra of [facility], patient okay to go home, [facility] will admit from patient's home. Noted.
--- NOTE | 2019-01-14 13:56 | NUR ---
NURSE NOTES: Patient noted with A-fib RVR with HR 117 per cardiac monitor. Performed 12 lead EKG per protocol, results read A-fib RVR with HR 120. Contacted and notified Dr. Hendricks of situation and assessments, patient has history of chronic A-fib, patient is DNR/DNI. Noted. Dr. Hendricks is noted with discharge order with home with [facility]. Inquired if okay to proceed with discharge order. Dr. Hendricks acknowledged and ordered to proceed with discharge. Noted. Charge nurse made aware.
--- NOTE | 2019-01-14 14:03 | NUR ---
NURSE NOTES: Patient noted with A-fib RVR, HR 117 12 lead EKG performed per protocol, results A-fib RVR with HR 120. Contacted Dr. Hendricks of situation and assessments, patient has history of chronic A-fib, patient is DNR/DNI.Confirmed okay to proceed forward with discharge plan. Per Dr Hendricks okay to discharge home with hospice.
[2019-01-14] MEDS ORDERED: D5 1/2NS 1000ml IV ONE (14:19)
--- NOTE | 2019-01-14 14:20 | NUR ---
NURSE NOTES: Patient discharged to home with [facility] care per Dr Hendricks. Patient and patient's family were provided all discharge instructions and verbalized an understanding. IV access removed. No active bleeding noted. Heart monitor removed and returned to equipment monitor phototypesetting. IV band removed and placed in shredder. Patient left via private vehicle with all belongings and in stable condition.
--- NOTE | 2019-01-14 14:26 | NUR ---
NURSE NOTES: Informed Shilpi from [facility] care, patient will be at home at 4pm. Called and notified patient's daughter. Noted. Family at bedside made aware.
--- NOTE | 2019-01-17 09:49 | Discharge Summary ---
Discharge Summary Discharge Summary _ DATE OF ADMISSION: 01/12/2019 DATE OF DISCHARGE: 01/14/2019 DISCHARGED BY: Dr. Hendricks REASON FOR ADMISSION: 83 years old female with past medical history of metastatic liver cancer, was brought in by her daughter, because patient was getting more jaundiced. Patient also complained of new right flank pain. Patient with DNR/DNI status. Upon evaluation patient had mild leukocytosis, hemoglobin 11.3 , hematocrit 33.9. Lactic acid 3.9 Evidence of renal failure with BUN 47, creatinine 2.6. Total bilirubin 30.1, direct bilirubin 23.7. AST 614, ALT 68. Alkaline phosphatase 470. Troponin elevated 0.346 , pro BNP 77266. Patient was tachycardic , afebrile , pulse oximetry was stable on room air. CT of the chest abdomen and pelvis revealed evidence of metastatic malignant neoplasm with multiply lung nodules and suspicion of metastatic disease involving the liver. Diffuse enlargement of liver noted. Anasarca. Right chest port. Evidence of previous abdominal surgery, including partial bowel resection. In emergency department patient pancultured, started on empiric antibiotic and fluid resuscitation . Patient with DNR/DNI status with selective comfort measures. Daughter approved life-saving medications, but no compression or intubation. Patient subsequently admitted to stepdown unit for further management. HOSPITAL COURSE: Patient admitted to stepdown unit. Patient continued on IV fluids and empiric antibiotics. Abdominal ultrasound revealed hepatomegaly with suggestion of multiply nodules, suspicious for metastatic neoplasm. Hepatomegaly. Mild ascites. Status post cholecystectomy. Pain management was addressed. DVT prophylaxis provided. Bowel regimen instituted. Supplemental oxygen provided as needed to keep pulse oximetry above 92%. Bronchodilator therapy provided as needed. Lactic acid was trended up. Blood cultures came back positive with Staph epidermidis. LFT, total and direct bilirubin remained elevated. Patient exhibited paroxysmal atrial fibrillation. heart rate was controlled with diltiazem as needed. Further goals of care were discussed with patient's daughter . Patient had been on hospice services prior. Daughter verbalized agreement with hospice services. Patient was discharged home with hospice services to follow. . FINAL DIAGNOSES: Bacteremia with Staph epidermidis Possible sepsis Acute kidney injury Metastatic liver cancer Paroxysmal atrial fibrillation Tachycardia Jaundice DISCHARGE MEDICATIONS: List of medication was sent with patient DISCHARGE INSTRUCTIONS: Patient was discharged home with the hospice services. I have been assigned to dictate discharge summary for this account. I was not involved in the patient's management. Dionna Ponce NP Jan 17, 2019 09:49
--- NOTE | 2019-01-22 17:22 | Cardiology Report ---
APPROVED REPORT EKG Measurement Heart [id number] Atrial fibrillation with rapid ventricular response with premature ventricular or aberrantly conducted complexes Minimal voltage criteria for LVH, may be normal variant Nonspecific ST and T wave abnormality Abnormal ECG
== END 2019-01-14 14:20 | disposition hospice, home (50) | DRG 872 ==
LOC: EMR 20:56 → EDBEDREQ 21:20 → 2W 21:32 → EDBEDREQ 23:03
DX: A41.1 Sepsis due to other specified staphylococcus (principal); R17 Unspecified jaundice; N17.9 Acute kidney failure, unspecified; C78.7 Secondary malignant neoplasm of liver and intrahepatic bile duct; C80.1 Malignant (primary) neoplasm, unspecified; R00.0 Tachycardia, unspecified; I48.0 Paroxysmal atrial fibrillation; Z88.2 Allergy status to sulfonamides; Z88.1 Allergy status to other antibiotic agents; Z66 Do not resuscitate
CPT/HCPCS: 36415; 71045; 71250; 74176; 76700; 80053; 82248; 82550; 82553; 83605; 83690; 83880; 84484; 85025; 87040; 87181; 93005; 94640; 94664; 96361; 96365; 96368; 96375; 99285; J2405